=== PATIENT | female | born 2000 | race Caucasian/White ===

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

== ENCOUNTER → 2020-01-21 10:34 | Outpatient (CLI) | payer OTHER, SELFPAY ==
[2020-01-21 21:16] LABS: Coronavirus 19 IgG Antibody Negative (Negative); Coronavirus 19 IgM Antibody Negative (Negative)
== END ==
PROVIDERS: Visit Provider Internal Medicine Adolescent Medicine
DX: Z03.818 Encounter for observation for suspected exposure to other biological agents ruled out (principal); R05 Cough
CPT/HCPCS: 86328

== ENCOUNTER → 2020-02-25 16:10 | Outpatient (CLI) | payer OTHER, SELFPAY ==
[2020-02-25 18:19] LABS: Alanine Aminotransferase 21 U/L (12-78); Albumin Level 3.9 g/dl (3.5-5.0); Albumin/Globulin Ratio 1.3 (1.1-1.8); Alkaline Phosphatase 68 U/L (38-126); Anion Gap 12.2 mEq/L (5-15); Aspartate Amino Transferase 22 U/L (14-36); Bilirubin,Total 0.4 mg/dl (0.2-1.3); Blood Urea Nitrogen 11 mg/dl (7-17); Calcium 9.2 mg/dl (8.4-10.2); Carbon Dioxide 25 mmol/L (22.0-30.0); Chloride 106 mmol/L (98-107); Chol/HDL Ratio 2.6 (1-3.5); Cholesterol 120 mg/dl (140-200); Estimated Glomerular Filt Rate 159 ml/min (>60); GFR (African American) 192 ML/MIN (>60); Globulin 3.1 g/dL (1.3-3.2); Glucose 94 mg/dl (74-100); HDL Cholesterol 46 mg/dl (40-60); Potassium 4.2 mmoL/L (3.5-5.1); Sodium 139 mmol/L (136-145); Triglycerides 103 mg/dl (30-150); VLDL Cholesterol 21 mg/dL (0-40)
[2020-02-25 18:31] LABS: Direct LDL Cholesterol 65.06 mg/dL (100-129)
[2020-02-25 18:36] LABS: Hemoglobin A1C 5.4 % (4.0-6.0)
[2020-02-25 18:50] LABS: Thyroid Stimulating Hormone 2.44 uIU/mL (0.465-4.68)
== END ==
PROVIDERS: Visit Provider Nurse Practitioner Family
DX: Z68.42 Body mass index [BMI] 45.0-49.9, adult (principal); E28.2 Polycystic ovarian syndrome; E66.9 Obesity, unspecified
CPT/HCPCS: 36415; 80053; 80061; 83036; 84443

== ENCOUNTER → 2020-03-13 07:11 | Outpatient (CLI) | payer OTHER, SELFPAY ==
[2020-03-14 10:29] LABS: Progesterone 0.4 ng/mL (.)
== END ==
PROVIDERS: Visit Provider Obstetrics & Gynecology
DX: Z32.00 Encounter for pregnancy test, result unknown (principal)
CPT/HCPCS: 36415; 84144

== ENCOUNTER 2020-04-04 19:10 | Emergency (ER) | payer OTHER, SELFPAY ==
--- NOTE | 2020-04-04 19:29 | HMH.EDUTC ---
[facility] Disposition Clinical Impression: Bronchitis Bilateral otitis media Qualifiers: Otitis media type: suppurative Chronicity: acute Recurrence: non-recurrent Spontaneous tympanic membrane rupture: without spontaneous rupture Qualified Code(s): H66.003 - Acute suppurative otitis media without spontaneous rupture of ear drum, bilateral Disposition: Home, Self-Care Condition on Discharge: Good Instructions: Preventing the Spread of Coronavirus Discharge Instructions Additional Instructions: You have been tested for COVID19. Please isolate yourself as if you are positive until results are received. Prescriptions: Cefdinir [Omnicef 300mg Capsule] 300 mg PO BID #20 cap Transmission Status: Pending to [facility] #[id number] predniSONE [Prednisone 20mg Tab] 20 mg PO BID 5 Days #10 tab Transmission Status: Pending to [facility] #[id number] Referrals: Meng Huertas MD [Primary Care Provider] - Time of Disposition: 19:34 Medical Decision Making - Brad Inquiry Pt receiving controlled substance: No Orders (Tests/Meds): ORDERS Category Date Time Status Covid-19 Nasal PCR ([facility]) Routine Lab 04/04/20 19:25 Ordered [facility] HPI - General Stated complaint: Sore throat,cough Time Seen by Provider: 04/04/20 19:29 - History of Present Illness Provider Complaint: Ear pain, sore throat, sinus pain, cough productive of yellow sputum, fever X 2 days. No vomiting or diarrhea. No loss of taste or smell. No known exposure to COVID19. She does smoke Onset (ago): day(s) (2) Location: chest Relieving factors: none Exacerbating factors: none Associated symptoms: cough, fever/chills Treatments prior to arrival: none - Related Data Home Medications Medication Instructions Recorded Confirmed albuterol sulfate 90 mcg/actuation 1 inh INHALATION Q4-6H PRN 05/10/18 04/15/19 breath activated powder inhaler loratadine 10 mg disintegrating 10 mg PO DAILY 05/10/18 04/15/19 tablet montelukast 10 mg tablet 10 mg PO QPM 05/10/18 04/15/19 Previous Rx's Medication Instructions Recorded medroxyprogesterone 10 mg tablet 10 mg PO .2 tablets at once 7 Days 02/14/20 #14 tab norgestimate 0.25 mg-ethinyl 1 tab PO DAILY #28 tab 03/17/20 estradiol 35 mcg tablet Cefdinir [Omnicef 300mg Capsule] 300 mg PO BID #20 cap 04/04/20 predniSONE [Prednisone 20mg 20 mg PO BID 5 Days #10 tab 04/04/20 Tab] Allergies Allergy/AdvReac Type Severity Reaction Status Date / Time codeine [CODEINE] Allergy Unknown Verified 02/14/20 13:58 Penicillins [PENICILLINS] Allergy Unknown Verified 02/14/20 13:58 [facility] History - Hepatitis A Screen Attestation statement:: This patient has been screened for Hepatitis A risk factors. I have reviewed the patient's past medical history: Yes Medical History: Reports:: Asthma Denies:: Anxiety, Depression, Hypertension, MRSA, Seizures Laterality Cases: Bilateral: Tonsillectomy Amputation: No Fractures: No - Social History Smoking Status: Current every day smoker Alcohol Intake: never Substance Use Type: denies use Occupational Status: other - Psychiatric History Pschychiatric History:: Denies:: Anxiety, Depression Family Hx:: Cancer, Hypertension, Hyperlipidemia, Asthma ROS Obtained: Yes All systems reviewed & no additional complaints - Constitutional Constitutional: Reports body ache, Reports chills, Reports fever(s), Reports headache(s), Reports malaise - ENT Ears, Nose, Mouth, and Throat: Reports nasal congestion, Reports sinus pain, Reports sore throat - Respiratory Respiratory: Yes cough Physical Exam - General General appearance: alert, in no apparent distress - Head Head exam: atraumatic, normocephalic, normal inspection - Eye Eye exam: Present: normal appearance, PERRL, EOMI - ENT ENT exam: Present: normal exam, normal oropharynx, mucous membranes moist, normal external ear exam - Expanded ENT Exam TM/Canal exam: Bilateral
[2020-04-04 19:32] VITALS: BP 148/77; PULSE 97; RESP 19; TEMP 36.8; O2SAT 97; BMI 43.8
[2020-04-04 19:36] VITALS: BP 148/77; PULSE 94; RESP 19; TEMP 36.8; O2SAT 97
== END 2020-04-04 19:40 | disposition home or self-care (01) ==
PROVIDERS: Emergency Provider Physician Assistant; PCP Internal Medicine Adolescent Medicine
DX: Z20.828 Contact with and (suspected) exposure to other viral communicable diseases (principal); J20.9 Acute bronchitis, unspecified; H66.003 Acute suppurative otitis media without spontaneous rupture of ear drum, bilateral; J45.909 Unspecified asthma, uncomplicated
CPT/HCPCS: 99201; U0003

== ENCOUNTER 2020-11-23 14:54 | Emergency (ER) | payer OTHER, SELFPAY ==
[2020-11-23 15:02] VITALS: BP 132/76; PULSE 92; RESP 18; TEMP 36.6; O2SAT 97; BMI 43.5
--- NOTE | 2020-11-23 15:13 | XR_ITS ---
PROCEDURE: XR WRIST RT MIN 3V CLINICAL INDICATION: crush injury COMPARISON: CR WRL2 WRIST-2 VIEWS-LT from 01/01/2011 CR WRR3 WRIST-3 VIEWS-RT from 01/01/2011 CR WRR2 WRIST-2 VIEWS-RT from 01/19/2011 CR WRL3 WRIST-3 VIEWS-LT from 01/19/2011 FINDINGS: No fracture or dislocation. No lytic or blastic change. There is normal mineralization. The joint spaces are well-preserved. No significant degenerative/arthritic changes. No erosive changes evident. Other findings:None. IMPRESSION: No acute findings. Dictated by: Juan Alberto Wilson MD 11/23/2020 16:28 Juan Alberto Wilson MD in [place] 11/23/2020 16:28
--- NOTE | 2020-11-23 15:51 | HMH.EDUTC ---
[facility] [place] Impression: Crushing injury of right wrist Qualifiers: Encounter type: initial encounter Qualified Code(s): S67.31XA - Crushing injury of right wrist, initial encounter Disposition: Home, Self-Care Condition on Discharge: Good Instructions: DI for Wrist Sprain, DI for Crush Injury Additional Instructions: Rest the extremity, apply ice for 15 minutes as tolerated three or four times per day, Wear the micha wrap for compression, Elevate the extremity as tolerated while you are resting. Take ibuprofen for pain. I sent in a prescription to your pharmacy. Follow up with Dr. Swartz (orthopedics). Sometimes there can be fractures that don't show up well on the first set of x-rays. So, you should follow up if you continue to have symptoms. I put in a referral but you need to call his office and schedule an appointment. Follow up with your regular doctor. GO TO THE ER FOR ANY WORSENING SYMPTOMS Prescriptions: Ibuprofen [Ibuprofen 600mg Tablet] 600 mg PO Q6HP PRN #30 tab PRN Reason: Mild Pain Transmission Status: Received by [facility] #[id number] Mupirocin [Bactroban 2% Ointment 22gm tube] 1 applicatio TP TID 7 Days #1 tube Transmission Status: Received by [facility] #[id number] Referrals: Meng Huertas MD [Primary Care Provider] - Cholo Swartz MD [Staff Physician] - Forms: Work/School Release Time of Disposition: 16:33 Medical Decision Making - Medical Records Medical records reviewed: No: I reviewed the patient's medical records. - Brad Inquiry Pt receiving controlled substance: No Vital Signs: 11/23/20 15:02 11/23/20 16:44 Temperature 98 F 98 F Temperature Source Oral Pulse Rate 84 Pulse Rate [Right] 92 H Respiratory Rate 18 18 Blood Pressure 132/76 Blood Pressure [Left Arm] 132/76 Blood Pressure Mean [Left Arm] 94 02 Sat by Pulse Oximetry 97 - Lab Data Lab Results 11/23/20 15:13: [facility] Negative - Radiology Data #1 Image(s): Wrist Image Reviewed: Yes I reviewed the patient's radiology image, Yes I have reviewed radiologist's interpretation Preliminary Findings: Normal/NAD, No Fracture Seen PROCEDURE: XR WRIST RT MIN 3V CLINICAL INDICATION: crush injury COMPARISON: CR WRL2 WRIST-2 VIEWS-LT from 01/01/2011 CR WRR3 WRIST-3 VIEWS-RT from 01/01/2011 CR WRR2 WRIST-2 VIEWS-RT from 01/19/2011 CR WRL3 WRIST-3 VIEWS-LT from 01/19/2011 FINDINGS: No fracture or dislocation. No lytic or blastic change. There is normal mineralization. The joint spaces are well-preserved. No significant degenerative/arthritic changes. No erosive changes evident. Other findings:None. IMPRESSION: No acute findings. Dictated by: Juan Alberto Wilson MD 11/23/2020 16:28 Juan Alberto Wilson MD in [place] 11/23/2020 16:28 [facility] [place] - General Stated complaint: ao rt arm 11/22 14:30 Time Seen by Provider: 11/23/20 15:51 Mode of Arrival: Ambulatory Source of Information: Patient Limitations: No Limitations Description of Symptoms (Recalled from Triage Doc. by RN): pt states she caught her R wrist in garage door yesterday aroun 1500. pt is now having pain 10/10 that is burning. purple bruising present. HEENT Symptoms (Recalled from RN notes): No Resp Symptoms (Recalled from RN notes): No Skin Symptoms (Recalled from RN notes): No MS Symptoms (Recalled from RN notes): Yes (R wrist pain and bruising) Functional Status (Recalled from RN notes): na - History of Present Illness Provider Complaint: She states that she was closing her garage door yesterday when it came down on her right wrist. She has had right wrist pain, swelling and bruising since then. Moving the wrist makes the pain worse. - Related Data Home Medications Medication Instructions Recorded Confirmed albuterol sulfate 90 mcg/actuation 1 inh INHALATION Q4-6H PRN 05/10/18 04/15/19 breath activated powder inhaler loratadine 10 mg disintegra
[2020-11-23 16:44] VITALS: BP 132/76; PULSE 84; RESP 18; TEMP 36.6
[2020-11-23 21:33] LABS: UTC Pregnancy Test, Urine Negative (Negative)
== END 2020-11-23 16:47 | disposition home or self-care (01) ==
PROVIDERS: Emergency Provider Nurse Practitioner Family; PCP Internal Medicine Adolescent Medicine
DX: S67.31XA Crushing injury of right wrist, initial encounter (principal); W23.0XXA Caught, crushed, jammed, or pinched between moving objects, initial encounter; Y92.015 Private garage of single-family (private) house as the place of occurrence of the external cause
CPT/HCPCS: 73110; 81025; 99202; G0463

== ENCOUNTER 2021-01-11 12:27 | Emergency (ER) | payer OTHER, SELFPAY ==
[2021-01-11 12:29] VITALS: BP 145/95; PULSE 97; RESP 18; TEMP 37.2; O2SAT 98; BMI 42.3
--- NOTE | 2021-01-11 12:50 | HMH.EDGENADL ---
ED Disposition Clinical Impression: Encounter for wound re-check Disposition: Home, Self-Care Condition on Discharge: Good Instructions: Skin Wound Referrals: Meng Huertas MD [Primary Care Provider] - - Critical Care Critical Care Time: No Attestation: On 01/11/21, the high probability of a clinically significant, sudden or life threatening deterioration of the following system(s) required my full and direct attention, intervention and personal management. The time I documented below is in addition to time spent performing reported procedures but includes the following listed in this critical care notation. Medical Decision Making - Medical Records Medical records reviewed: Yes: I reviewed the patient's medical records. - Brad Inquiry Pt receiving controlled substance: No Vital Signs: 01/11/21 12:29 Temperature 98.9 F Temperature Source Oral Pulse Rate [Left Radial] 97 H Respiratory Rate 18 Blood Pressure [Right Arm] 145/95 H Blood Pressure Mean [Right Arm] 111 Blood Pressure Source [Right Arm] Automatic Cuff Blood Pressure Position [Right Arm] Sitting 02 Sat by Pulse Oximetry 98 Oxygen Delivery Method Room Air Orders (Tests/Meds): ED MEDICATIONS Discontinued Medications Generic Name Dose Route Start Last Admin Trade Name Freq PRN Reason Stop Dose Admin Tetanus/Reduced Diphtheria/Acell Pertussis 0.5 ml 01/11/21 12:49 Tet/Diphth/Pert-Adult 0.5ml Syringe IM 01/11/21 12:50 .ONCE ONE Medical Decision Narrative: 20-year-old female presented to the emergency department with a wound evaluation. Patient does not appear to have any active bleeding at this time. The wound appears to be healing well. We will place pressure dressing on the wound. Patient will follow-up for suture removal as previously described by her last ER visit. Patient was given wound care instructions. Verbalized understanding. General Adult HPI - General Chief complaint: Recheck/Abnormal Lab/Rx Stated complaint: ao 01/04/21 lac site still bleeding Time Seen by Provider: 01/11/21 12:30 Mode of Arrival: Ambulatory Limitations: No Limitations Description of Symptoms (Recalled from ER Triage Doc. by RN): c/o wound bleeding. states that she cut her left thigh with scissors on Monday night, [facility] stitched wound and then off and on it has been bleeding. Currently not bleeding at this time. - History of Present Illness HPI narrative: This is a 20-year-old female presented to the emergency department for wound evaluation. The patient states that she accidentally cut herself on the leg with a pair of scissors. She went to the emergency department and had a stitch placed. She was discharged without complication. Patient got concerned because over the last 2 days she has had some minor bleeding from the wound in her left thigh. She denies any new pain in the area. No other discharge. Patient did apply pressure dressing and appears to have stopped the bleeding. Patient states that she is unsure of her tetanus status and did not receive update at previous facility. She denies any chest pain or shortness of breath. No headache or change in vision. No fevers or chills. Abdominal pain or vomiting. - Related Data Home Medications Medication Instructions Recorded Confirmed albuterol sulfate 90 mcg/actuation 1 inh INHALATION Q4-6H PRN 05/10/18 04/15/19 breath activated powder inhaler loratadine 10 mg disintegrating 10 mg PO DAILY 05/10/18 04/15/19 tablet montelukast 10 mg tablet 10 mg PO QPM 05/10/18 04/15/19 Previous Rx's Medication Instructions Recorded medroxyprogesterone 10 mg tablet 10 mg PO .2 tablets at once 7 Days 02/14/20 #14 tab norgestimate 0.25 mg-ethinyl 1 tab PO DAILY #28 tab 03/17/20 estradiol 35 mcg tablet Cefdinir [Omnicef 300mg Capsule] 300 mg PO BID #20 cap 04/04/20 predniSONE [Prednisone 20mg 20 mg PO BID 5 Days #10 tab 04/04/20 Tab] Ibuprofen [Ibuprofe
[2021-01-11 13:09] VITALS: BP 143/66; PULSE 78; RESP 18; TEMP 37.2; O2SAT 97
== END 2021-01-11 13:10 | disposition home or self-care (01) ==
PROVIDERS: Emergency Provider Emergency Medicine; PCP Internal Medicine Adolescent Medicine
DX: S71.112D Laceration without foreign body, left thigh, subsequent encounter (principal)
CPT/HCPCS: 99281

== ENCOUNTER 2021-04-12 14:18 | Emergency (ER) | payer OTHER, SELFPAY ==
[2021-04-12 15:35] VITALS: BP 159/80; PULSE 87; RESP 18; TEMP 37.1; O2SAT 96; BMI 45.1
--- NOTE | 2021-04-12 16:02 | HMH.EDUTC ---
[facility] [place] Clinical Impression: Bronchitis Sinusitis Qualifiers: Sinusitis location: unspecified location Chronicity: unspecified Qualified Code(s): J32.9 - Chronic sinusitis, unspecified Disposition: Home, Self-Care Condition on Discharge: Good Instructions: Acute Bronchitis, DI for Sinusitis Additional Instructions: ? Start antibiotic today. Be sure to complete entire prescription even if feeling better ? Monitor temp. Tylenol every 4 hours as needed and / or ibuprofen every 6 hours as needed ( As long as your primary care physician has told you that it ok to take both. For fever/aches/pains ER if no less than 101 despite Tylenol or Motrin ? Humidifier/vaporizer or hot steamy shower ? Inhaler every 4-6 hours as needed like we discussed. If unsure how to use it, ask pharmacist to demonstrate how. Should help open airways and improve cough, wheezing, and shortness of breath ? Mucinex during the day for your cough and cough suppressant only at night. Be sure to drink lots of water. Insurance may not cover a prescriptions for mucinex. Might be cheaper to get 400mg tablets and take 2 tablet in the morning, mid-day and evening with lots of water. *Promethazine DM cough syrup will cause drowsiness. Use only at night. No driving, operating machinery or caring for small children after taking it *Tessalon Perles will not cause drowsiness but use at bedtime to help stop cough so that you may get some rest. *Start steroid today. Helps with inflammation therefore, cough and wheezing. Follow directions on the package. Reviewed side effects. Patient reports taking them before. Follow up IMMEDIATELY for new or worsening of symptoms OR no noticeable improvement over the next 48-72 hours. 911 immediately for any life threatening symptoms such as chest pain or difficulty breathing Prescriptions: predniSONE [Prednisone 20mg Tab] 20 mg PO BID 5 Days #10 tab Transmission Status: Pending to [facility] #[id number] Azithromycin [Z-Maurisio 250mg Tab] 250 mg PO DIRECTED #6 tab Transmission Status: Pending to [facility] #[id number] Referrals: Meng Huertas MD [Primary Care Provider] - As needed Forms: Work/School Release Time of Disposition: 16:24 Medical Decision Making - Brad Inquiry Pt receiving controlled substance: No Brad was queried for this patient: No Vital Signs: 04/12/21 15:35 Temperature 98.7 F Temperature Source Oral Pulse Rate [Left] 87 Respiratory Rate 18 Blood Pressure [Right Arm] 159/80 H Blood Pressure Mean [Right Arm] 106 02 Sat by Pulse Oximetry 96 - Lab Data Lab results reviewed: Yes: I reviewed the patient's lab results. Orders (Tests/Meds): ORDERS Category Date Time Status Covid-19 Nasal PCR ([facility]) Routine Lab 04/12/21 16:09 Received [facility] [place] - General Stated complaint: covid test/congestion, cough, runny nose Time Seen by Provider: 04/12/21 16:03 Mode of Arrival: Ambulatory Source of Information: Patient Limitations: No Limitations Description of Symptoms (Recalled from Triage Doc. by RN): pt c/o cough, congestion, and nasal drainage. pt thinks she has bronchitis. HEENT Symptoms (Recalled from RN notes): Yes (congestion and nasal drainage) Resp Symptoms (Recalled from RN notes): Yes (cough) Skin Symptoms (Recalled from RN notes): No MS Symptoms (Recalled from RN notes): No Functional Status (Recalled from RN notes): na - History of Present Illness Provider Complaint: Patient states that she has hasnt felt well for close to a week States that she has been having sinus congestion and pressure and feeling like she is having drainage in the back of her throat States that she feels like it is trying to move into her chest Statse that feels like she does when she has bronchitis - Related Data Home Medications Medication Instructions Recorded Confirmed albuterol sulfate 90 mcg/actuation 1 inh INHALATION Q4-6H PRN 05/10/18 04/15/19 breath activated powder inhaler
[2021-04-12 16:28] VITALS: BP 159/80; PULSE 87; RESP 18; TEMP 37.1
[2021-04-12 19:13] LABS: UTC Pregnancy Test, Urine Negative (Negative)
== END 2021-04-12 16:37 | disposition home or self-care (01) ==
PROVIDERS: Emergency Provider Nurse Practitioner; PCP Internal Medicine Adolescent Medicine
DX: J20.9 Acute bronchitis, unspecified (principal); J32.9 Chronic sinusitis, unspecified; J45.909 Unspecified asthma, uncomplicated; Z20.822 Contact with and (suspected) exposure to COVID-19
CPT/HCPCS: 81025; 99203; C9803; G0463; U0003; U0005